=== PATIENT | female | born 1935 | race Caucasian/White ===

== ENCOUNTER 2019-12-29 14:20 | Inpatient (IN) | payer MEDICARE ==
[~2019-12-29] VITALS: Ht 157.5 cm; Wt 47.6 kg
--- NOTE | 2019-12-29 14:54 | PHYS DOC ---
Past History Past Medical History: A-Fib, COPD, Hypertension, Other (Urinary incontinence) Past Surgical History: No Surgical History Smoking: Cigarettes, Quit Greater Than 1 Year Alcohol Use: None Drug Use: None Adult General HPI HPI Patient is a 84-year-old full code patient who presents via EMS for weakness. Patient has history of high blood pressure, urinary incontinence, and seizures. Patient lives with daughter who states patient has been more weak than usual past 48 hours with increased coughing frequency, sputum production, and purulence. Patient had virtual visit with primary care physician yesterday and decision was made to prescribe doxycycline for acute exacerbation of COPD. Nonetheless, patient continued to be weak today and had x1 episode of observed nonbloody nonbilious vomit which concerned daughter prompting her to call EMS for transport for facility for arrival. History obtained from both daughter and patient, patient has been afebrile since symptom onset. She has been taking all medications as prescribed. Daughter does note that patient has had x1 known positive Covid person contact within past 1 week at a family gathering. She is concerned patient might have this. Patient seen and evaluated by EMS, hemodynamically stable, x1 peripheral line in left AC started and 500 L normal saline administered in route to our facility. On arrival, patient has no acute complaints Review of Systems Review of Systems Fourteen body systems of review of systems have been reviewed. See HPI for pertinent positives and negative responses, other giles all other systems are negative, non-pertinent or non-contributory Physical Exam Physical Exam Constitutional: Thin, appears malnourished, no acute distress, non-toxic appearance. HENT: Normocephalic, atraumatic, bilateral external ears normal, oropharynx moist, no oral exudates, nose normal. Eyes: PERRLA, EOMI, conjunctiva normal, no discharge. Neck: Normal range of motion, no tenderness, supple, no stridor. Cardiovascular: Heart rate regular, sinus rhythm, no murmurs rubs or gallops Lungs & Thorax: No respiratory distress, no accessory muscle use, mild rhonchi in bilateral lobes diffusely Abdomen: Bowel sounds normal, soft, no tenderness, no masses, no pulsatile masses. Nonsurgical abdomen, no peritoneal signs Skin: Warm, dry, no erythema, no rash. Back: No tenderness, no CVA tenderness. Extremities: No tenderness, no cyanosis, no clubbing, ROM intact, trace pedal edema bilaterally Neurologic: Alert and oriented X 3, grossly normal motor & sensory function, no focal deficits noted. Psychologic: Affect normal, judgement normal, mood normal. Current Patient Data Lab Results Laboratory Tests Test 12/29/19 15:05 White Blood Count 4.2 x10^3/uL (4.0-11.0) Red Blood Count 3.57 x10^6/uL (3.50-5.40) Hemoglobin 11.6 g/dL (12.0-15.5) Hematocrit 34.5 % (36.0-47.0) Mean Corpuscular Volume 97 fL (79-100) Mean Corpuscular Hemoglobin 33 pg (25-35) Mean Corpuscular Hemoglobin Concent 34 g/dL (31-37) Red Cell Distribution Width 12.8 % (11.5-14.5) Platelet Count 161 x10^3/uL (140-400) Neutrophils (%) (Auto) 54 % (31-73) Lymphocytes (%) (Auto) 24 % (24-48) Monocytes (%) (Auto) 18 % (0-9) Eosinophils (%) (Auto) 3 % (0-3) Basophils (%) (Auto) 1 % (0-3) Neutrophils # (Auto) 2.3 x10^3uL (1.8-7.7) Lymphocytes # (Auto) 1.0 x10^3/uL (1.0-4.8) Monocytes # (Auto) 0.8 x10^3/uL (0.0-1.1) Eosinophils # (Auto) 0.1 x10^3/uL (0.0-0.7) Basophils # (Auto) 0.1 x10^3/uL (0.0-0.2) Sodium Level 119 mmol/L (136-145) Potassium Level 4.5 mmol/L (3.5-5.1) Chloride Level 87 mmol/L (98-107) Carbon Dioxide Level 28 mmol/L (21-32) Anion Gap 4 (6-14) Blood Urea Nitrogen 20 mg/dL (7-20) Creatinine 0.8 mg/dL (0.6-1.0) Estimated GFR (Cockcroft-Gault) 68.3 BUN/Creatinine Ratio 25 (6-20) Glucose Level 108 mg/dL (70-99) Calcium Level 8.3 mg/dL (8.5-10.1) Total Bilirubin 0.5 mg/dL (0.2-1.0) Aspartate Amino Transf (AST/SGOT) 36 U/L (15-37) Alanine Aminotransferase (ALT/SGPT) 18 U/L (14-59) Alkaline Phosphatase 120 U/L (46-116) Troponin I Quantitative < 0.017 ng/mL (0-0.055) Total Protein 6.6 g/dL (6.4-8.2) Albumin 3.2 g/dL (3.4-5.0) Albumin/Globulin Ratio 0.9 (1.0-1.7) EKG EKG EKG obtained and interpreted by myself at 1511 hrs. as an irregular rhythm consistent with atrial fibrillation with a ventricular rate of 69 bpm, QRS 98, QTc 439, no axis deviation, no acute ischemic findings, no STEMI Radiology/Procedures Radiology/Procedures PROCEDURE: CHEST AP ONLY CHEST AP ONLY History: Reason: COUGH / Spl. Instructions: / History: Comparison: September 12, 2019 Findings: Reticular interstitial thickening. Hyperinflation. No pleural effusion. No pneumothorax. Unchanged heart size. Impression: 1. Reticular interstitial thickening, likely related to chronic interstitial changes. No new consolidation. 2. Enlarged cardiac size, unchanged. Electronically signed by: Olayinka Morales DO (12/29/2019 3:23 PM) [id number] Heart Score HEART Score for Chest Pain: HEART Score for Chest Pain Response (Comments) Value History Slighlty/Non-Suspicious 0 ECG Normal 0 Age > 65 2 Risk Factors 1 or 2 Risk Factors 1 Troponin < Normal Limit 0 Total 3 Risk Factors: Risk Factors: DM, Current or recent (<one month) smoker, HTN, HLP, family history of CAD, obesity. Risk Scores: Risk Factors: DM, Current or recent (<one month) smoker, HTN, HLP, family history of CAD, obesity. Course & Med Decision Making Course & Med Decision Making Pertinent Labs and Imaging studies reviewed. (See chart for details) Discussed most likely diagnosis of acute exacerbation of COPD, now a person under investigation for COVID-19, and hyponatremia which is likely cause of patient's presenting weakness/fatigue/nausea and vomit episode I discussed case with patient and daughter, discussed need for admission for medical management and they were both amenable I discussed case with hospitalist, Dr. Aguila, who is agreeable to admission under his care IV normal saline at a rate of 100 mL/hour started while in ER, patient stabilized and pending ER transportation to [facility] for further medical management Dragon Disclaimer Dragon Disclaimer This electronic medical record was generated, in whole or in part, using a voice recognition dictation system. Departure Departure: Impression: Primary Impression: Hyponatremia Additional Impressions: Person under investigation for COVID-19 Acute exacerbation of chronic obstructive pulmonary disease (COPD) Disposition: 09 ADMITTED INPT THIS HOSP Admitting Physician: Sonny Aguila Referrals: PCP,UNKNOWN (PCP) Problem Qualifiers BAM ABAD DO Dec 29, 2019 14:54
[2019-12-29 15:23] LABS: BASO # 0.1 x10^3/uL (0.0-0.2); BASO % 1 % (0-3); EOS # 0.1 x10^3/uL (0.0-0.7); EOS % 3 % (0-3); HEMATOCRIT 34.5 % (36.0-47.0); HEMOGLOBIN 11.6 g/dL (12.0-15.5); LYMPH % 24 % (24-48); MEAN CORPUSCULAR HEMOGLOBIN 33 pg (25-35); MEAN CORPUSCULAR HGB CONC 34 g/dL (31-37); MEAN CORPUSCULAR VOLUME 97 fL (79-100); MONO # 0.8 x10^3/uL (0.0-1.1); MONO % 18 % (0-9); NEUT # 2.3 x10^3uL (1.8-7.7); NEUT % 54 % (31-73); PLATELET COUNT 161 x10^3/uL (140-400); RED BLOOD COUNT 3.57 x10^6/uL (3.50-5.40); RED CELL DISTRIBUTION WIDTH 12.8 % (11.5-14.5); WHITE BLOOD COUNT 4.2 x10^3/uL (4.0-11.0)
--- NOTE | 2019-12-29 15:25 | EKG ---
[address] [address] Test Date: 2019-12-29 Test Time: 15:09:42 Pat Name: OCTAVIO ADAIR Department: Room: Gender: F Education Trainer: CRUZ : 1935 Requested By: BAM ABAD Order Number: [id number] Reading MD: Jordin Esteban Measurements Intervals [place] Rate: 69 P: [place]: QRS: 70 QRSD: 98 T: 30 QT: 406 QTc: 437 Interpretive Statements SINUS RHYTHM ATRIAL PREMATURE COMPLEXES QRS(T) CONTOUR ABNORMALITY CONSISTENT WITH SEPTAL INFARCT PROBABLY OLD ABNORMAL ECG RI6.02 No previous ECG available for comparison Electronically Signed On 01-01-2020 15:52:16 [facility] by Jordin Esteban
--- NOTE | 2019-12-29 15:26 | RAD ---
CHEST AP ONLY History: Reason: COUGH / Spl. Instructions: / History: Comparison: September 12, 2019 Findings: Reticular interstitial thickening. Hyperinflation. No pleural effusion. No pneumothorax. Unchanged heart size. Impression: 1. Reticular interstitial thickening, likely related to chronic interstitial changes. No new consolidation. 2. Enlarged cardiac size, unchanged. Electronically signed by: Olayinka Morales DO (12/29/2019 3:23 PM) [id number]
[2019-12-29 15:53] LABS: ALBUMIN 3.2 g/dL (3.4-5.0); ALBUMIN/GLOBULIN RATIO 0.9 (1.0-1.7); CALCIUM 8.3 mg/dL (8.5-10.1); CREATININE 0.8 mg/dL (0.6-1.0); GFR 68.3; POTASSIUM 4.5 mmol/L (3.5-5.1); TOTAL BILIRUBIN 0.5 mg/dL (0.2-1.0); TOTAL PROTEIN 6.6 g/dL (6.4-8.2)
[2019-12-29] MEDS ORDERED: IV NORMAL SALINE 1,000ML 1,000 ML IV ONE (16:00)
--- NOTE | 2019-12-29 16:52 | HP ---
ADMIT DATE: 12/29/2019 ATTENDING PHYSICIAN: Dr. Bunch. CHIEF COMPLAINT: Weakness. HISTORY OF PRESENT ILLNESS: The patient is an 84-year-old female who lives with her daughter and son-in-law. She is a little forgetful and is a poor historian. She has had a 48-hour history of cough, congestion, low-grade fevers. She had COVID-19 exposure 5 days ago. She was swabbed in the ED. She had a chest x-ray done, which shows COPD, no acute exacerbation or infiltrate. She called her PCP 2 days ago, who prescribed doxycycline for an exacerbation of chronic obstructive pulmonary disease. She took one dose of this, had vomiting of nonbloody, nonbilious vomit, which concerned her daughter. She brought her to the Emergency Room. She was also found to have significant low sodium 119 mEq per liter, anion gap was normal, creatinine is adequate. She does appear dehydrated. She is not on a diuretic. She is admitted then with symptomatic hyponatremia. Whether or not these are GI losses or SIADH remains to be seen. I ordered a random serum urine specimen. 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 MEDICATIONS: She is not on a diuretic. I have yet to review the full list. She is not aware; I am in the process of reviewing her full list of medication. She also cannot tell me the name of her primary care physician as she did not remember them. SOCIAL HISTORY: She is a smoker up to recently several months ago. No alcohol use. FAMILY HISTORY: Both her parents lived to age 92. Her father of a stroke. Mother of heart disease. She is single and lives with her daughter and son-in-law. She is retired. REVIEW OF SYSTEMS: Significant for the respiratory symptoms. There was a COVID exposure last week; some cough, no productive phlegm. No high fevers. She has had one episode of vomiting. All other systems reviewed and turned to be negative. PHYSICAL EXAMINATION: GENERAL: When I saw her, this is a pleasant elderly female. INITIAL VITAL SIGNS: Showed a blood pressure of 110/70. She was afebrile. Her heart rate was 90 per minute. HEENT: Head is without trauma. Pupils are reactive. Sclerae nonicteric. The oropharynx is clear. NECK: Supple, no bruits. LUNGS: Diminished breath sounds at bases. CARDIOVASCULAR: Showed regular heart tones. No gallops. ABDOMEN: Soft, scaphoid, nontender. EXTREMITIES: Showed no cyanosis or edema. NEUROLOGIC: Focally intact. Memory is a bit forgetful. She is nonambulatory at this time. SKIN: Otherwise warm and dry. PERTINENT LABORATORY STUDIES: Initial hemoglobin was 11.6 g/dL with white count of 4200. Sodium 119 mEq, chloride 87, anion gap is 4, creatinine 0.8 mg percent, nonfasting blood sugar is 108. Cardiac enzymes negative for coronary ischemia. Transaminases were all normal. A random urine sodium is pending. Chest x-ray demonstrated reticular interstitial thickening, chronic in nature. Heart size is the upper limits of normal. No decompensation. ASSESSMENT: 1. An 84-year-old female with weakness related to hyponatremia, etiology is to be determined. 2. Recent COVID exposure. 3. Acute on chronic respiratory failure. 4. Advanced chronic obstructive pulmonary disease due to tobacco use. 5. Early memory issues. 6. Generalized weakness. 7. Rule out SIADH. PLAN: 1. Admit to the inpatient unit. 2. Gentle IV hydration with saline and intravenous as well as judicious oral potassium replacement. 3. Magnesium replacement. 4. Serial chemistries. 5. Physical therapy consult. 6. Await COVID swab. 7. adult services librarian to help with discharge planning. SAMEER BUNCH MD DR: MELY/forest JOB#: [id number] / [id number]
[2019-12-29] MEDS ORDERED: IV NORMAL SALINE 1,000ML 1,000 ML IV PRN (18:30)
[2019-12-29 20:18] VITALS: BP 130/67
[2019-12-29] MEDS ORDERED: OMEP10CA4 PO (22:45)
[2019-12-29] MEDS ORDERED: LISI-334 PO (22:45)
[2019-12-29] MEDS ORDERED: METO50TA29 PO (22:45)
[2019-12-29] MEDS ORDERED: DOXY100T PO (22:45)
[2019-12-29] MEDS ORDERED: OXYB5TAB10 PO (22:45)
[2019-12-29] MEDS ORDERED: PHEN100C PO (22:45)
--- NOTE | 2019-12-29 22:57 | NUR ---
Pt admitted to 122 via EMS accompanied by ER staff. Pt was assisted from gurney to bed w/ assistance of ems personal. Pt was resting comfortably when approached for assessment. Pt is [place]. Pt was unable to remember at home medication list. Daughter, Jenny, was called and med list was obtained. Call light in reach w/ continue to monitor.
[2019-12-30 00:10] VITALS: BP 113/59
[2019-12-30 06:07] LABS: CALCIUM 8.2 mg/dL (8.5-10.1); CREATININE 0.8 mg/dL (0.6-1.0); GFR 68.3; POTASSIUM 3.5 mmol/L (3.5-5.1)
[2019-12-30] MEDS: FLU VACC QS 2020-21(6MOS+)/PF 0.5 ML SYRINGE. VAX IM ONE ×2 (09:00→09:51)
[2019-12-30] MEDS: POTASSIUM CHLORIDE 20 MEQ TABLET.ER. PO SCH (09:50)
[2019-12-30 11:15] VITALS: BP 119/62
--- NOTE | 2019-12-30 11:52 | NUR ---
NSG NOTE; CONFUSION HAS ABNORMAL BODY AND HEAD MOVEMENTS AND STATES SHE HAS HAD THIS FOR YEARS CAME OUT OF HER ROOM LOOKING FOR "SOMEONE TO TALK TO". RETURNED TO HER ROOM AND ASKED TO STAY THERE SHE IS COVID 19 PENDING
[2019-12-30] MEDS: LISINOPRIL 20 MG TABLET PO SCH (11:58)
[2019-12-30] MEDS: METOPROLOL SUCC 24HR ER 50 MG TAB.ER.24H. PO SCH (11:58)
[2019-12-30 15:04] VITALS: BP 119/80
[2019-12-30 19:54] VITALS: BP 122/56
[2019-12-30] MEDS: PHENYTOIN SODIUM EXTENDED 100 MG CAPSULE PO SCH (21:11)
[2019-12-30 23:02] VITALS: BP 111/51
--- NOTE | 2019-12-31 04:36 | PN ---
DATE: 12/30/2019 ATTENDING PHYSICIAN: Dr. Bunch. SUBJECTIVE: The patient is doing better. She is up to the chair. She is alert. She denied any pain, nausea or discomfort. No further diarrhea. No dizziness. OBJECTIVE FINDINGS: VITAL SIGNS: Blood pressure today is 113/59, pulse is 66 and regular, temperature 99.1 degrees Fahrenheit. Room air sats 95%. Coronavirus swab is still pending. HEENT: Head is without trauma. Pupils are reactive. Sclerae nonicteric. Oropharynx clear. NECK: Supple, no bruits identified. LUNGS: Clear. CARDIOVASCULAR: Showed regular heart tones. No gallops. ABDOMEN: Soft. EXTREMITIES: Without edema. Charge Master Specialist very strong and intact and symmetrical. NEUROLOGIC: Speech is fluent. LABORATORY STUDIES: Sodium is improved to 123 mEq, potassium 3.5 mEq, creatinine of 0.8 mg/dL. ASSESSMENT: 1. An 84-year-old female with weakness related to hyponatremia. A random urine is still pending to rule out syndrome of inappropriate antidiuretic hormone. 2. Recent COVID exposure, rule out COVID coronavirus. 3. Acute on chronic respiratory failure, improved. 4. Chronic obstructive pulmonary disease due to tobacco use. 5. Early memory issues. 6. I noticed that she is on home meds of Dilantin. I am not aware of the seizure issues. 7. Generalized weakness, improved. PLAN: 1. Continue IV hydration. 2. Judicious oral potassium supplementation. 3. Magnesium replacement. 4. Serial chemistries. 5. Await random urine sodium. 6. Await COVID swab. 7. director of women's services help with discharge planning. SAMEER BUNCH MD DR: MELY/forest JOB#: [id number] / [id number]
[2019-12-31 06:32] VITALS: BP 129/65
[2019-12-31 06:35] LABS: CREATININE 0.7 mg/dL (0.6-1.0); GFR 79.7; POTASSIUM 3.9 mmol/L (3.5-5.1)
[2019-12-31] MEDS: POTASSIUM CHLORIDE 20 MEQ TABLET.ER. PO SCH (09:12)
[2019-12-31] MEDS: LISINOPRIL 20 MG TABLET PO SCH (09:13)
[2019-12-31] MEDS: METOPROLOL SUCC 24HR ER 50 MG TAB.ER.24H. PO SCH (09:13)
[2019-12-31 10:09] VITALS: BP 111/54
[2019-12-31] MEDS ORDERED: ENOXAPARIN 30 MG/0.3 ML SYRINGE. SQ SCH (11:30)
[2019-12-31] MEDS: FAMOTIDINE 20 MG TABLET PO SCH ×2 (11:30→20:31)
[2019-12-31] MEDS: ZINC SULFATE 220 MG CAPSULE. PO SCH (11:30)
[2019-12-31] MEDS: DEXAMETHASONE 4 MG TABLET PO SCH (12:00)
--- NOTE | 2019-12-31 12:10 | NUR ---
REFUSAL NOTE-pt refuses medications et straight cath. She is angry that she is not discharging today. Attempts to void in hat are unsuccessful. Threatens that she will leave today "I'll call an ambulance if I have to." Educated pt that ambulance will not come get her from hospital, explained plan for medications, urine testing, et educated re:low sodium concerns. Will continue to observe.
[2019-12-31 16:53] VITALS: BP 118/78
--- NOTE | 2019-12-31 17:01 | NUR ---
Pt has been non compliant with cares since lunch time. She continues to remove telemetry patches and box, pulled out an IV. Iv site re-established, but refuses to allow IVF to continue.
--- NOTE | 2019-12-31 17:03 | NUR ---
DISCHARGE INFORMATION-the daughter that lives with the patient, Jenny Bloom, called this afternoon. She spoke with her physicians, and they advise against her allowing the pt to return to their home as the daughter is medically fragile as well. Some discharge planning will be required to find placement for asymptomatic (and non compliant) patient while positive for COVID but unable to return home.
[2019-12-31 20:07] VITALS: BP 130/60
[2019-12-31] MEDS: PHENYTOIN SODIUM EXTENDED 100 MG CAPSULE PO SCH (20:31)
[2019-12-31 22:45] VITALS: BP 140/74
--- NOTE | 2020-01-01 05:57 | EKG ---
[address] [address] Test Date: 2020-01-01 Test Time: 05:23:39 Pat Name: OCTAVIO ADARI Department: Room: 122 A Gender: F Catering Administrative Assistant: : 1935 Requested By: SAMEER BUNCH Order Number: [id number] Reading MD: Measurements Intervals [place] Rate: 73 P: [place]: QRS: 62 QRSD: 90 T: 43 QT: 422 QTc: 469 Interpretive Statements IRREGULAR RHYTHM, NO P-WAVE FOUND VENTRICULAR PREMATURE COMPLEX(ES) LOW LIMB LEAD VOLTAGE QRS(T) CONTOUR ABNORMALITY CONSIDER ANTEROSEPTAL MYOCARDIAL DAMAGE CONSIDER INFERIOR MYOCARDIAL DAMAGE ABNORMAL ECG RI6.01 Compared to ECG 12/29/2019 15:09:42 Myocardial infarct finding no longer present
[2020-01-01 06:05] VITALS: BP 147/75
[2020-01-01] MEDS: FAMOTIDINE 20 MG TABLET PO SCH (08:47)
[2020-01-01] MEDS: DEXAMETHASONE 4 MG TABLET PO SCH (08:47)
[2020-01-01] MEDS: POTASSIUM CHLORIDE 20 MEQ TABLET.ER. PO SCH (08:47)
[2020-01-01] MEDS: ZINC SULFATE 220 MG CAPSULE. PO SCH (08:47)
[2020-01-01] MEDS: METOPROLOL SUCC 24HR ER 50 MG TAB.ER.24H. PO SCH (08:47)
[2020-01-01 08:48] VITALS: BP 147/75
[2020-01-01] MEDS: LISINOPRIL 20 MG TABLET PO SCH (08:48)
--- NOTE | 2020-01-01 09:35 | PN ---
DATE: 12/31/2019 ATTENDING PHYSICIAN: Dr. Bunch. SUBJECTIVE: She wants to go home. She does not understand why she is here. Her serum sodium is still low at 123. We were not able to get a urine specimen. We will need a straight catheter. In addition, she tested positive for coronavirus, although she has no symptoms. OBJECTIVE FINDINGS: VITAL SIGNS: Blood pressure today is 111/54, temperature is 98.5 degrees Fahrenheit, pulse 65 and regular, oxygen saturation 96% on room air. HEENT: Head is without trauma. Pupils are reactive. Sclerae nonicteric. Oropharynx clear. NECK: Supple, no bruits. LUNGS: Clear. CARDIOVASCULAR: Showed regular heart tones. No gallops. ABDOMEN: Soft. EXTREMITIES: Without edema. NEUROLOGIC: Focally intact. Speech was fluent. SKIN: Warm and dry. ASSESSMENT: 1. An 84-year-old female with chronic hyponatremia. She is not symptomatic. Urine sodium has not been done because of incontinence. 2. She has COVID exposures. She has tested positive for coronavirus, although she is asymptomatic. 3. Acute on chronic respiratory failure, improved. 4. Chronic obstructive pulmonary disease due to tobacco use. 5. Early memory issues. 6. Generalized weakness, improved. PLAN: 1. Continue IV hydration. 2. We will get a straight catheter for urine sodium. 3. Potassium supplementation. 4. Serial chemistries. 5. The family may be agreeable to take her home for quarantine since she is asymptomatic at this time. SAMEER BUNCH MD DR: MELY/forest JOB#: [id number] / [id number]
--- NOTE | 2020-01-01 11:35 | NUR ---
DISCHARGE-Pt IV removed, IVF discontinued. Telemetry discontinued et removedAssisted with dressing. Discharge papers reviewed with patient, medications remain unchanged from prior to admission. Wheelchair transport to door with all personal possessions. Pt is stable, asymptomatic COVID+. Discharges with face mask intact.
--- NOTE | 2020-01-01 19:32 | DS ---
DATE OF DISCHARGE: 01/01/2020 ATTENDING PHYSICIAN: Dr. Bunch. FINAL DISCHARGE DIAGNOSES: 1. Dehydration. 2. Chronic hyponatremia, asymptomatic. 3. Incidental finding of positive exposure to coronavirus, she was asymptomatic. 4. Chronic obstructive pulmonary disease due to tobacco use. 5. Dementia. 6. Generalized weakness, improved. HISTORY OF PRESENT ILLNESS: The patient is an 84-year-old female living at home with her daughter. She had dehydration, chronic hyponatremia, not on a diuretic. She was admitted then for dehydration symptom, IV hydration, serial chemistries. She also tested positive for COVID-19 coronavirus while in the hospital. PHYSICAL EXAMINATION: Please see my dictated note. PERTINENT LABORATORY AND X-RAY STUDIES: Admission hemoglobin was 11.6 g/dL, white count 4200. Sodium was 119 on the first day, next day was up to 123, 3rd day she was still 123. I ordered a urinary random sodium, they were unable to get it because she was incontinent. She eventually got a specimen. It was still pending on the day of discharge. Cardiac enzymes were negative for coronary ischemia. Creatinine 0.7 mg/dL. Chest x-ray showed hyperinflation, no pleural effusion. Heart size is unchanged. There is no acute infiltrates identified. COURSE IN THE HOSPITAL: The patient was admitted. She was started on IV hydration. Serial chemistries were drawn. Diet was advanced. I ordered a random serum sodium, unfortunately was still pending at the time of discharge. I was looking for SIADH. She did well clinically. She had no symptoms. She was back to her baseline despite a sodium of 123. This is chronic in nature and the patient was asymptomatic. She insisted on leaving. Given the circumstances and the fact that she was asymptomatic, I felt this was safe for her to be discharged and therefore, she is discharged home on the fourth hospital day with continuation of her same medicines including the following: She should continue her doxycycline until done, lisinopril daily, metoprolol, omeprazole, oxybutynin, and Dilantin 300 mg daily. Her prognosis is fair. I recommend a followup visit and recheck chemistries with her PCP in 2 weeks. She was discharged then from our hospital in stable condition with explicit instructions and followup care. TOTAL DISCHARGE TIME SPENT: 41. SAMEER BUNCH MD DR: MELY/forest JOB#: [id number] / [id number]
== END 2020-01-01 12:29 | disposition home or self-care (01) | DRG 177 ==
LOC: ER 14:20 → 1 SOUTH 18:00
PROVIDERS: ADMIT Hospitalist; ATTEND Hospitalist
DX: U07.1 COVID-19 (principal); J96.20 Acute and chronic respiratory failure, unspecified whether with hypoxia or hypercapnia; E22.2 Syndrome of inappropriate secretion of antidiuretic hormone; J44.1 Chronic obstructive pulmonary disease with (acute) exacerbation; E86.0 Dehydration; F03.90 Unspecified dementia, unspecified severity, without behavioral disturbance, psychotic disturbance, mood disturbance, and anxiety; I11.0 Hypertensive heart disease with heart failure; I48.0 Paroxysmal atrial fibrillation; I50.810 Right heart failure, unspecified; R32 Unspecified urinary incontinence; Z82.3 Family history of stroke; Z82.49 Family history of ischemic heart disease and other diseases of the circulatory system; Z87.891 Personal history of nicotine dependence
CPT/HCPCS: 36415; 71045; 80048; 80053; 84300; 84484; 85025; 90686; 93005; J8540; U0003; 97530; 99285-25; J7030

== ENCOUNTER 2020-01-06 10:21 | Emergency (ER) | payer MEDICARE ==
[~2020-01-06] VITALS: Ht 157.5 cm; Wt 64.2 kg
[~2020-01-06 10:21] MED LIST: DOXY100T PO; LISI-334 PO; METO50TA29 PO; OMEP10CA4 PO; OXYB5TAB10 PO; PHEN100C PO
--- NOTE | 2020-01-06 10:28 | PHYS DOC ---
Past History Past Medical History: COPD, Heart Disease, Hypertension Past Surgical History: No Surgical History Smoking: Cigarettes, Quit Greater Than 1 Year Alcohol Use: None Drug Use: None General Adult EDM: Chief Complaint: LACERATION/AVULSION HPI: HPI: 84-year-old female past medical history significant for COPD, dementia, with recent discharge from the hospital 5 days ago status post hyponatremia with asymptomatic covid (positive 12/28), presents to the ED via EMS after accidental fall from standing, stating "I think I caught my shoe, it fell off." Pt lives with daughter, rarely uses her walker. Thinks tetanus is UTD. Denies any preceding symptoms. RN called daughter who confirmed history. Pt on no AC. No LOC, nausea or vomiting. H/o ICH 08/2019 (per emr review). Review of Systems: Review of Systems: ROS somewhat limited due to dementia and pt being hard of hearing Constitutional: Denies fever or chills Eyes: Denies change in visual acuity HENT: Denies nasal congestion or sore throat Respiratory: Denies cough or shortness of breath or hemoptysis Cardiovascular: Denies chest pain or edema or dizziness or lightheadedness GI: Denies abdominal pain, nausea, vomiting, bloody stools or diarrhea : Denies dysuria Musculoskeletal: Denies midline back pain or joint pain/swelling Integument: Denies rash or diaphoresis Neurologic: Denies headache, neck pain, focal weakness or sensory changes Endocrine: Denies polyuria or polydipsia Lymphatic: Denies swollen glands Psychiatric: Denies depression or anxiety Allergies: Allergies: Allergies Coded Allergies Type Severity Reaction Last Updated Verified No Known Drug Allergies 12/29/19 No Physical Exam: PE: Constitutional: Well developed, well nourished, no acute distress, non-toxic appearance. [] HENT: 3cm laceration over right forehead/eyebrow margin, bilateral external ears normal, oropharynx moist/no bleeding, no septal hematomas Eyes: PERRLA, EOMI, left upper eyelid with ecchomosis < 1cm (no tarsal plate sparing), conjunctiva normal, no discharge. [] Neck: Normal range of motion, no tenderness, supple, Cardiovascular: S1/2 present Lungs & Thorax: Speaking in full sentences, bilateral equal chest rise Abdomen: soft, no tenderness, Skin: Warm, dry, no erythema, no rash. [] Back: No midline or lateral ttp Extremities: No tenderness, no cyanosis, no clubbing, ROM intact, +2/4 equal pitting edema. [] Neurologic: Alert and oriented X 3, normal motor function, normal sensory function, no focal deficits noted, has unsteady gait and is a fall risk-needs a walker (pt seen leaving her ed room with shoes barely on/laces untied) Psychologic: Affect normal-apathetic, judgement normal, mood normal. [] EKG: EKG: [] Radiology/Procedures: Radiology/Procedures: Indication: Right scalp laceration Procedure: The patient was placed in the appropriate position. The area was then cleaned -no foreign bodies visualized. The laceration was closed with nina #3. The wound area was then dressed with triple antibiotic ointment. Total repaired wound length: 3 cm. The patient tolerated the procedure . Complications: None IMAGING REPORT Signed PATIENT: OCTAVIO ADAIR ACCOUNT: [id number] : 1935 LOCATION: ER AGE: 84 SEX: F EXAM STATUS: REG ER ORD. PHYSICIAN: LISSA CASIANO DO REASON: fall, laceration, headache, positive covid (COMPARE TO PREVIOUSCT PROCEDURE: CT HEAD AND MAXILLOFACIAL WO CT brain without contrast. HISTORY: Fall, head laceration, Covid-19 positive, headache CT scan the brain was done without contrast. Comparison is made with a study from August 2018. There is no intracranial hemorrhage or subdural hematoma. The patient is asymmetrically positioned. There is a density in the posterior frontal white matter on the right which was present on the old study most consistent with a focus of ossification. Ventricles are normal in size. There is extensive decreased density in the white matter from chronic microvascular changes. An acute CVA is not identified a skull fracture is not evident. There is diffuse mucosal thickening in the ethmoid and frontal sinuses. There is mucosal thickening in the left maxillary sinus and in the left sphenoid sinus. IMPRESSION: 1. Sinusitis. 2. Small focus of calcification in the white matter right posterior frontal region with little change from the old study. 3. Atrophy and chronic white matter changes. 4. No intracranial hemorrhage. PQRS Compliance Statement: One or more of the following individualized dose reduction techniques were utilized for this examination: 1. Automated exposure control 2. Adjustment of the mA and/or kV according to patient size 3. Use of iterative reconstruction technique Electronically signed by: Bishop Antonio MD (01/06/2020 11:08 AM) [id number] DICTATED AND SIGNED BY: BISHOP ANTONIO MD DATE: 01/06/20 1108 CC: ANNE VELASQUEZ MD; LISSA CASIANO DO ~MTH0 0 IMAGING REPORT Signed PATIENT: OCTAVIO ADAIR ACCOUNT: [id number] : 1935 LOCATION: ER AGE: 84 SEX: F EXAM STATUS: REG ER ORD. PHYSICIAN: LISSA CASIANO DO REASON: FALL, HIT HEAD PROCEDURE: CT CERVICAL SPINE WO CONTRAST CT cervical spine. HISTORY: Fall, head trauma Axial CT images were obtained through the cervical spine. Sagittal and coronal reconstructed images were reviewed. An acute C-spine fracture is not identified. There are emphysematous changes in the lung apices. There are small bilateral thyroid nodules. No further follow-up thyroid nodules is warranted. There is extensive carotid artery calcification especially at the right carotid bifurcation. An acute C-spine fracture is not identified. There is degenerative disc disease at C4-5 and C5-6. There is spurring at C5-6 with mild foraminal stenosis IMPRESSION: 1. Degenerative changes in the cervical spine. 2. No acute C-spine fracture. 3. Extensive carotid artery calcification at the right carotid bifurcation. PQRS Compliance Statement: One or more of the following individualized dose reduction techniques were utilized for this examination: 1. Automated exposure control 2. Adjustment of the mA and/or kV according to patient size 3. Use of iterative reconstruction technique Electronically signed by: Bishop Antonio MD (01/06/2020 11:11 AM) [id number] DICTATED AND SIGNED BY: BISHOP ANTONIO MD DATE: 01/06/20 1111 CC: ANNE VELASQUEZ MD; LISSA CASIANO DO ~MTH0 0 Heart Score: Risk Factors: Risk Factors: DM, Current or recent (<one month) smoker, HTN, HLP, family history of CAD, obesity. Risk Scores: Score 0 - 3: 2.5% MACE over next 6 weeks - Discharge Home Score 4 - 6: 20.3% MACE over next 6 weeks - Admit for Clinical Observation Score 7 - 10: 72.7% MACE over next 6 weeks - Early Invasive Strategies Course & Med Decision Making: Course & Med Decision Making Pertinent Labs and Imaging studies reviewed. (See chart for details) Nexus C-spine criteria are negative: There is no post midline tenderness, the patient is not intoxicated, there is a normal level of alertness, there are no focal neurologic deficits and there are no distracting injuries. Accidental mechanical fall s/p head laceration with repair. Tetanus updated. Sodium improved from 5 days ago. No UTI or anemia. Wound care instructions given. Staple removal in 7-10 days. Strict ED return precautions were given for severe headache, repeat head injury, pain, n/v, confusion or neuro deficits. Encouraged urgent outpatient follow-up with PMD. Life-threatening processes were considered but are low suspicion at this time, given history and physical exam. Pt was educated on all prescription medications and adverse effects. All patient's questions were answered and pt was stable at time of discharge. Life/limb-threatening differential includes but is not limited to, intracranial hemorrhage, diffuse axonal injury, spinal cord syndrome, unstable cervical fracture or SCIWORA, fractures or joint dislocations, neurovascular injuries, organ injury or laceration, pneumothorax, pneumoperitoneum, pericardial ma ponade, unstable pelvic fracture, compartment syndrome, flail chest or respiratory distress, burn injury or asphyxiation I spoken with the patient and her caregivers. I explained the patient's condition, diagnoses and treatment plan based on the information available to me at this time. I have answered the patient and her caregiver's questions and addressed any concerns. The patient and her caregivers have a good understanding of patient's diagnosis, condition and treatment plan as can be expected at this point. Vital signs have been stable. Patient's condition is stable and appropriate for discharge from the emergency department. Patient will pursue further outpatient evaluation with primary care physician or other designated or consulting physician as outlined in the discharge instructions. The patient and/or caregivers are agreeable to this plan of care and follow-up instructions have been explained in detail. The patient and/or caregivers have received these instructions in written form and have expressed an understanding of the discharge instructions. The patient and/or caregivers are aware that any significant change of condition or worsening of symptoms should prompt immediate return to this or the closest emergency department or call to [email or web address] Vandana Disclaimer: Vandana Disclaimer: This electronic medical record was generated, in whole or in part, using a voice recognition dictation system. Departure Departure: Impression: Primary Impression: Fall Additional Impression: Laceration of head Disposition: 01 DC HOME SELF CARE/HOMELESS Condition: STABLE Referrals: ANNE VELASQUEZ MD (PCP) staple removal in 7-10 days Patient Instructions: Head Injury, Adult, Staple Wound Closure, [id number] Additional Instructions: FOLLOW UP WITH NEUROLOGY: for recurrent headaches/concussive symptoms Blessing Macedo MD [address] [place] [address], [address] [place] [address] [address] [place] [address] EMERGENCY DEPARTMENT GENERAL DISCHARGE INSTRUCTIONS Thank you for coming to [facility] (ED) today and trusting us with you care. We trust that you had a positivie experience in our Emergency Department. If you wish to speak to the department management, you may call the director at [phone]. YOUR FOLLOW UP INSTRUCTIONS ARE FOLLOWS: 1. Do you have a private Doctor? If you do not have a private doctor, please ask for a resource list of physicians or clinics that may be able to assist you with follow up care. 2. The Emergency Physician has interpreted your x-rays. The X-Ray specialist will also review them. If there is a change in the findings, you will be notified in 48 hours when at all possible. 3. A lab test or culture has been done, your results will be reviewed and you will be notified if you need a change in treatment. ADDITIONAL INSTRUCTIONS AND INFORMATION: 1. Your care today has been supervised by a physician who is specially trained in emergency care. Many problems require more than one evaluation for a complete diagnosis and treatment. We recommend that you schedule your follow up appointment as recommended to ensure complete treatment of you illness or injury. If you are unable to obtain follow up care and continue to have a problem, or if your condition worsens, we recommend that you return to the ED. 2. We are not able to safely determine your condition over the phone nor are we able to give sound medical advice over the phone. For these safety reasons, if you call for medical advice we will ask you to come to the ED for further evaluation. 3. If you have any questions regarding these discharge instructions please call the ED at [phone]. SAFETY INFORMATION: In the interest of safety, wellness, and injury prevention; we encourage you to wear your sealbelt, if you smoke; quite smoking, and we encourage family to use a protective helmet for bicycling and other sporting events that present an increased risk for head injury. IF YOUR SYMPTOMS WORSEN OR NEW SYMPTOMS DEVELOP, OR YOU HAVE CONCERNS ABOUT YOUR CONDITION; OR IF YOUR CONDITION WORSENS WHILE YOU ARE WAITING FOR YOUR FOLLOW UP APPOINTMENT; EITHER CONTACT YOUR PRIMARY CARE DOCTOR, THE PHYSICIAN WHOSE NAME AND NUMBER YOU WERE GIVEN, OR RETURN TO THE ED IMMEDIATELY. [facility]IS[facility] DO Jan 06, 2020 10:28
[2020-01-06] MEDS ORDERED: NEOMY/BACITR/POLYMYXIN OINT PACKET. TP ONE (10:45)
[2020-01-06] MEDS ORDERED: DIPH,PERTUSS(ACELL),TET VAC/PF 0.5 ML SYRINGE. VAX IM ONE (10:45)
--- NOTE | 2020-01-06 11:11 | RAD ---
CT brain without contrast. HISTORY: Fall, head laceration, Covid-19 positive, headache CT scan the brain was done without contrast. Comparison is made with a study from August 2018. There is no intracranial hemorrhage or subdural hematoma. The patient is asymmetrically positioned. There is a density in the posterior frontal white matter on the right which was present on the old study most consistent with a focus of ossification. Ventricles are normal in size. There is extensive decreased density in the white matter from chronic microvascular changes. An acute CVA is not identified a skull fracture is not evident. There is diffuse mucosal thickening in the ethmoid and frontal sinuses. There is mucosal thickening in the left maxillary sinus and in the left sphenoid sinus. IMPRESSION: 1. Sinusitis. 2. Small focus of calcification in the white matter right posterior frontal region with little change from the old study. 3. Atrophy and chronic white matter changes. 4. No intracranial hemorrhage. RS Compliance Statement: One or more of the following individualized dose reduction techniques were utilized for this examination: 1. Automated exposure control 2. Adjustment of the mA and/or kV according to patient size 3. Use of iterative reconstruction technique Electronically signed by: Bishop Antonio MD (01/06/2020 11:08 AM) [id number]
--- NOTE | 2020-01-06 11:13 | RAD ---
CT cervical spine. HISTORY: Fall, head trauma Axial CT images were obtained through the cervical spine. Sagittal and coronal reconstructed images were reviewed. An acute C-spine fracture is not identified. There are emphysematous changes in the lung apices. There are small bilateral thyroid nodules. No further follow-up thyroid nodules is warranted. There is extensive carotid artery calcification especially at the right carotid bifurcation. An acute C-spine fracture is not identified. There is degenerative disc disease at C4-5 and C5-6. There is spurring at C5-6 with mild foraminal stenosis IMPRESSION: 1. Degenerative changes in the cervical spine. 2. No acute C-spine fracture. 3. Extensive carotid artery calcification at the right carotid bifurcation. PQRS Compliance Statement: One or more of the following individualized dose reduction techniques were utilized for this examination: 1. Automated exposure control 2. Adjustment of the mA and/or kV according to patient size 3. Use of iterative reconstruction technique Electronically signed by: Bishop Antonio MD (01/06/2020 11:11 AM) [id number]
[2020-01-06 11:31] LABS: HEMATOCRIT 35.5 % (36.0-47.0); RED BLOOD COUNT 3.66 x10^6/uL (3.50-5.40); RED CELL DISTRIBUTION WIDTH 13.1 % (11.5-14.5); WHITE BLOOD COUNT 6.2 x10^3/uL (4.0-11.0)
[2020-01-06 11:49] LABS: CALCIUM 8.5 mg/dL (8.5-10.1); CREATININE 0.9 mg/dL (0.6-1.0); GFR 59.7; POTASSIUM 4.3 mmol/L (3.5-5.1)
[2020-01-06 11:55] LABS: ALBUMIN 3.6 g/dL (3.4-5.0); ALBUMIN/GLOBULIN RATIO 1.2 (1.0-1.7); TOTAL BILIRUBIN 0.4 mg/dL (0.2-1.0); TOTAL PROTEIN 6.5 g/dL (6.4-8.2)
[2020-01-06 12:03] LABS: BILIRUBIN,URINE NEG (NEG); CLARITY,URINE CLEAR; COLOR,URINE YELLOW; GLUCOSE,URINE NEG (NEG)
[2020-01-06 12:04] LABS: BACTERIA,URINE 0 /HPF (0-FEW); NITRITE,URINE NEG (NEG); RBC,URINE OCC /HPF (0-2); SQUAMOUS EPITHELIAL CELL,UR FEW /LPF; UROBILINOGEN,URINE 0.2 mg/dL (0.2 mg/dL); WBC,URINE OCC /HPF (0-4)
[2020-01-06 12:15] VITALS: BP 132/76
== END 2020-01-06 12:15 | disposition home or self-care (01) ==
LOC: ER 10:21
DX: S01.81XA Laceration without foreign body of other part of head, initial encounter (principal); I11.9 Hypertensive heart disease without heart failure; J44.9 Chronic obstructive pulmonary disease, unspecified; Z87.891 Personal history of nicotine dependence; W18.39XA Other fall on same level, initial encounter; Y93.89 Activity, other specified; Y92.89 Other specified places as the place of occurrence of the external cause; Y99.8 Other external cause status
CPT/HCPCS: 12013; 36415; 70450; 70486; 72125; 80053; 81001; 85027; 90471; 90715; 99285-25